=== PATIENT | female | born 1955 | race Caucasian/White ===

== ENCOUNTER 2018-05-04 12:15 | Emergency (ER) | payer MEDICARE, OTHER ==
[2018-05-04 12:26] VITALS: PULSE 98
--- NOTE | 2018-05-04 13:39 | C.PDOC ---
History Of Present Illness 63 y/o female presents to the ED, sent in by PMD for evaluation of high blood pressure. Patient states she went to the office was a routine injection today, and was told her pressure was higher than normal. She reports taking all medications as directed. Patient otherwise denies any headache, nausea, vomiting, chest pain, SOB, fever, chills, abdominal pain, back pain, or urinary symptoms. She has an appointment next week for follow up. Time Seen by Provider: 05/04/18 13:11 Chief Complaint (Nursing): High Blood Pressure History Per: Patient History/Exam Limitations: no limitations Onset/Duration Of Symptoms: Hrs Current Symptoms Are (Timing): Still Present Exacerbating Factor(s): Pos: Increased Salt/Salty Foods Past Medical History Reviewed: Historical Data, Nursing Documentation, Vital Signs Vital Signs: Last Vital Signs Temp 98.8 F 05/04/18 12:20 Pulse 98 H 05/04/18 12:20 Resp 14 05/04/18 12:20 BP 189/149 H 05/04/18 12:20 Pulse Ox 100 05/04/18 12:20 - Medical History PMH: HTN, Hypercholesterolemia, Schizophrenia Denies: Chronic Kidney Disease Family History: States: No Known Family Hx - Social History Hx Alcohol Use: No Hx Substance Use: No - Immunization History Hx Influenza Vaccination: Yes Review Of Systems Except As Marked, All Systems Reviewed And Found Negative. Constitutional: Negative for: Fever Eyes: Negative for: Vision Change Cardiovascular: Negative for: Chest Pain, Palpitations Respiratory: Negative for: Shortness of Breath Gastrointestinal: Negative for: Nausea, Vomiting, Abdominal Pain Musculoskeletal: Negative for: Back Pain Neurological: Negative for: Weakness, Numbness, Headache, Dizziness Physical Exam - Physical Exam Additional Physical Exam Comments: Constitutional: No acute distress. Head: Normocephalic. Atraumatic. Eyes: PERRL. ENT: Moist mucous membranes. Neck: Supple. Cardiovascular: Regular rate. Radial pulse 2+ bilaterally. Chest: No tenderness. Respiratory: Clear to auscultation bilaterally. GI: Soft. Nontender. Nondistended. Back: No CVA tenderness. Musculoskeletal: No tenderness or swelling of extremities. Skin: No rash. Neurologic: Oriented x 3. Cranial nerves II-XII intact. Sensation to light touch intact to all extremities. Motor 5/5 x 4. Gait normal. Finger to nose normal. ED Course And Treatment O2 Sat by Pulse Oximetry: 100 (RA) Pulse Ox Interpretation: Normal Medical Decision Making Medical Decision Making: Plan is for discharge home. At time of discharge, blood pressure improving without any intervention. Disposition - Disposition Disposition: HOME/ ROUTINE Disposition Time: 13:38 Condition: STABLE Instructions: High Blood Pressure in Adults, High Blood Pressure Emergencies Forms: [employer] (Japanese) - Clinical Impression Clinical Impression: Asymptomatic hypertension - Scribe Statement The provider has reviewed the documentation as recorded by the Laxmi Manzanares Provider Attestation: All medical record entries made by the Laxmi were at my direction and personally dictated by me. I have reviewed the chart and agree that the record accurately reflects my personal performance of the history, physical exam, medical decision making, and the department course for this patient. I have also personally directed, reviewed, and agree with the discharge instructions and disposition.
[2018-05-04 13:55] VITALS: BP 161/134; RESP 20; TEMP 98.5
[2018-05-04 14:14] VITALS: O2SAT 100
== END 2018-05-04 13:57 | disposition home or self-care (01) ==
LOC: C.ER 12:15
DX: I10 Essential (primary) hypertension (principal)